=== PATIENT | male | born 1960 | race Caucasian/White ===

== ENCOUNTER 2016-06-24 09:16 | Emergency (ER) | payer OTHER ==
[~2016-06-24] VITALS: Wt 90.0 kg
[~2016-06-24 09:16] MED LIST: ASPI-664 PO; ATOR20TA38 PO; CYCL5TAB PO; FLUO10CA66; HC1C30 TOP; NPH10OT LEFT EAR
[2016-06-24] MEDS ORDERED: HYDROCODONE/APAP (5/325) TAB PO ONE (10:00)
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
--- NOTE | 2016-06-24 12:53 | RADRPT ---
PROCEDURE: XR facial bones CLINICAL INDICATION: Facial pain. Remote mandible surgery. TECHNIQUE: AP, Alexander, and lateral views were performed. COMPARISON: No prior studies are available for comparison. FINDINGS: The paranasal sinuses are unremarkable. There is no opacification, air-fluid level or mass identifi ed. The osseous structures are normal. The orbits are unremarkable. There is no fracture or disloc ation. The nasal bones are intact. There postsurgical changes within the right mandible, with a single coiled wire. IMPRESSION: Postsurgical changes to the right mandible. Otherwise, unremarkable exam. RPTAT: EE .Emily Green MD, MD Date Time Electronically viewed and signed by .Emily Green MD, MD on 06/24/2016 12:52 .F/
[2016-06-24] MEDS ORDERED: HYDR-906 PO (13:03)
[2016-06-24] MEDS ORDERED: AMO500 PO (13:03)
== END 2016-06-24 13:10 | disposition home or self-care (01) ==
LOC: FTE 09:16
DX: R68.84 Jaw pain (principal); Z79.82 Long term (current) use of aspirin
CPT/HCPCS: 70140; Z7502; Z7610